=== PATIENT | male | born 1970 ===

== ENCOUNTER → 2016-07-01 | Outpatient (REF) | payer OTHER ==
[2016-07-01 14:38] LABS: BASOPHILS % (AUTO) 0 % (0-2); EOSINOPHILS # (AUTO) 0.2 10^3uL; EOSINOPHILS % (AUTO) 2 % (0-4); LYMPHOCYTES # (AUTO) 1.2 X10^3; MEAN CORPUSCULAR HEMOGLOBIN 29.9 PG (26.0-34.0); MEAN CORPUSCULAR HGB CONC 35.9 g/dL (31.0-37.0); MEAN CORPUSCULAR VOLUME 83 FL (80-100); MEAN PLATELET VOLUME 11.6 FL (6.0-9.5); MONOCYTES % (AUTO) 11 % (3-11); NEUTROPHILS # (AUTO) 6.8 X10^3; NEUTROPHILS % (AUTO) 73 % (51-67); PLATELET COUNT 286 10^3uL (150-450); WHITE BLOOD COUNT 9.31 10^3uL (4.0-11.0)
[2016-07-01 14:41] LABS: BILIRUBIN,URINE Negative (Negative); CLARITY,URINE Clear; COLOR,URINE Yellow; GLUCOSE, URINE (UA) Negative (Negative); LEUKOCYTE ESTERASE ,URINE Negative (Negative); PH,URINE 5.5 (5.0 - 8.0); UROBILINOGEN,URINE 0.2 mg/dL (0.2-1.0)
[2016-07-01 14:42] LABS: ALBUMIN 4.2 g/dL (3.4-5.0); ANION GAP 17.1 MEQ/L (3-15); TOTAL PROTEIN 7.7 g/dL (6.4-8.5)
== END ==
LOC: LAB 14:20
PROVIDERS: ATTEND Physician Assistant Surgical
DX: E11.9 Type 2 diabetes mellitus without complications (principal); I10 Essential (primary) hypertension
CPT/HCPCS: 80053; 81003; 83036; 84443; 85025